=== PATIENT | female | born 1995 | race Two or more races ===

== ENCOUNTER 2021-01-30 01:13 | Emergency (ER) | payer OTHER ==
[~2021-01-30] VITALS: Ht 154.9 cm; Wt 85.3 kg
[2021-01-30] MEDS ORDERED: PROZAC10 MG (01:25)
[2021-01-30] MEDS ORDERED: KETO10TA2 PO (07:36)
== END 2021-01-30 07:50 | disposition home or self-care (01) ==
LOC: ER 01:13
DX: N20.1 Calculus of ureter (principal)

== ENCOUNTER → 2021-06-28 | Outpatient (CLI) | payer OTHER ==
[~2021-06-28] MED LIST: KETO10TA2 PO; PROZAC10 MG
== END | disposition home or self-care (01) ==
LOC: SONOGRAMA 10:59
PROVIDERS: ATTEND Family Medicine
DX: E04.1 Nontoxic single thyroid nodule (principal)

== ENCOUNTER 2021-10-06 13:08 | Outpatient (CLI) | payer OTHER | END 2021-10-06 13:16 | disposition home or self-care (01) | LOC: RAD 13:08 | PROVIDERS: ATTEND Obstetrics & Gynecology Obstetrics | DX: M99.01 Segmental and somatic dysfunction of cervical region (principal); M99.02 Segmental and somatic dysfunction of thoracic region; M99.03 Segmental and somatic dysfunction of lumbar region; M62.830 Muscle spasm of back ==

== ENCOUNTER 2023-01-30 10:33 | Outpatient (CLI) | payer OTHER | END 2023-01-30 10:54 | disposition home or self-care (01) | LOC: TOM 10:33 | PROVIDERS: ATTEND Otolaryngology | DX: J32.0 Chronic maxillary sinusitis (principal); M26.609 Unspecified temporomandibular joint disorder, unspecified side ==

== ENCOUNTER 2024-05-26 07:28 | Outpatient (CLI) | payer OTHER | END 2024-05-26 07:42 | disposition home or self-care (01) | LOC: RAD 07:28 | DX: R22.1 Localized swelling, mass and lump, neck (principal); E27.8 Other specified disorders of adrenal gland; M54.2 Cervicalgia; M54.6 Pain in thoracic spine; M54.50 Low back pain, unspecified ==

== ENCOUNTER 2024-06-17 07:13 | Outpatient (CLI) | payer OTHER | END 2024-06-17 07:14 | disposition home or self-care (01) | LOC: NUCLEAR 07:13 | PROVIDERS: ATTEND Physical Medicine & Rehabilitation | DX: M13.0 Polyarthritis, unspecified (principal) ==